=== PATIENT | male | born 1995 | race Caucasian/White ===

== ENCOUNTER 2017-01-12 09:39 | Emergency (ER) | payer SELFPAY ==
[~2017-01-12] VITALS: Ht 182.9 cm; Wt 63.0 kg
[~2017-01-12 09:39] MED LIST: IBUP-1542 PO
[2017-01-12 09:40] VITALS: Ht 182.9 cm; Wt 63.0 kg
[2017-01-12] MEDS ORDERED: SOD CHLORIDE 0.9% 1,000 ML IV STA (09:54)
[2017-01-12 10:31] LABS: BASOPHILS % 0.4 % (0.0-2.0); EOSINOPHILS # 0.2 10^3/ul (0.0-0.5); EOSINOPHILS % 3.2 % (0.0-7.0); HEMATOCRIT 41.9 % (42.0-52.0); HEMOGLOBIN 14.7 g/dl (14.0-18.0); LYMPHOCYTES # 1.8 10^3/ul (0.8-2.9); LYMPHOCYTES % 25.7 % (18.0-55.0); MEAN CORPUSCULAR HEMOGLOBIN 32.5 pg (29.0-33.0); MEAN CORPUSCULAR HGB CONC 35.1 g/dl (32.0-37.0); MEAN CORPUSCULAR VOLUME 92.5 fl (72.0-104.0); MEAN PLATELET VOLUME 10.7 fl (7.4-10.4); MONOCYTE # 0.4 10^3/ul (0.3-0.9); MONOCYTES % 5.9 % (0.0-13.0); NEUTROPHIL # 4.5 10^3/ul (1.6-7.5); NEUTROPHILS % 64.4 % (30.0-74.0); PLATELET COUNT 197 10^3/UL (140-415); RED BLOOD COUNT 4.53 10^6/ul (4.70-6.10); RED CELL DISTRIBUTION WIDTH 12.7 % (11.5-14.5); WHITE BLOOD COUNT 6.9 10^3/ul (4.8-10.8)
[2017-01-12 10:46] LABS: ANION GAP 11 (8-16); BLOOD UREA NITROGEN 13 mg/dl (7-20); CALCIUM 8.8 mg/dl (8.4-10.2); CARBON DIOXIDE 27 mmol/L (21-31); CHLORIDE 106 mmol/L (97-110); CREATININE 0.95 mg/dl (0.61-1.24); GLUCOSE 129 mg/dl (70-220); POTASSIUM 3.8 mmol/L (3.5-5.1); SODIUM 140 mmol/L (135-144)
--- NOTE | 2017-01-12 10:52 | RADRPT ---
PROCEDURE: CT BRAIN WITHOUT CONTRAST. CLINICAL INDICATION: Headache and syncope TECHNIQUE: A CT of the brain was performed on a multidetector high-resolution CT scanner utilizing axial imaging from the skull base through the vertex without IV contrast. Multiplanar reformatted images were made. Images were reviewed on a PACS workstation. The CTDIvol is 42.8 mGy and the DLP is 630 mGycm. One or more of the following dose reduction techniques were used: - Automated exposure control. - Adjustment of the mA and/or kV according to patient size. - Use of iterative reconstruction technique. COMPARISON: None FINDINGS: The posterior fossa structures are unremarkable. The jakob, midbrain, and medulla appear to be with n ormal limits. There is no evidence of acute intracranial hemorrhage, infarct, or extra-axial fluid collection. No gross mass effect or midline shift. Cerebral sulci, cisternal spaces, and ventricles are within norm al limits. The visualized paranasal sinuses are clear. The mastoid air cells are well-aerated. The calvarium is unremarkable. IMPRESSION: 1. No evidence of acute intracranial hemorrhage, infarct, or extra-axial fluid collection. 2. Unremarkable CT brain. RPTAT: AAPP Physician Zachary Date Time Electronically viewed and signed by Physician Zachary on 01/12/2017 10:51 JL/
[2017-01-12 11:03] LABS: TROPONIN-I < 0.012 ng/ml (0.00-0.12)
[2017-01-12] MEDS ORDERED: IBUP-1542 PO (11:37)
[2017-01-12] MEDS ORDERED: ONDA4TAB14 PO (11:37)
--- NOTE | 2017-01-12 12:55 | ERD ---
ER Documentation Chief Complaint Date/Time DATE: 01/12/17 TIME: 12:51 Chief Complaint headache, dizzy since this morning HPI A 21-year-old male with no medical problems who presents with nausea and lightheadedness. He denies passing out but felt like he was going to. He has a headache. It started this morning about 1 hour ago. The patient has had no treatment as of yet. He has no fevers. Upon review of old medical records this is the patient's fourth visit to the ER since 2006. The patient does not currently have a primary doctor. ROS All systems reviewed and are negative except as per history of present illness. Medications Home Meds Active Scripts Ondansetron (Ondansetron Odt) 4 Mg Tab.rapdis, 4 MG PO Q6H Y for NAUSEA AND/OR VOMITING, #10 TAB Prov:MI VILLA MD 01/12/17 Ibuprofen* (Motrin*) 600 Mg Tab, 600 MG PO Q6H Y for PAIN AND OR ELEVATED TEMP, #30 TAB Prov:MI VILLA MD 01/12/17 Discontinued Scripts Ibuprofen* (Motrin*) 600 Mg Tab, 600 MG PO Q6H Y for PAIN AND OR ELEVATED TEMP, #30 TAB Prov:JACQUELYN LUNA PA-C 01/30/16 Allergies Allergies: Coded Allergies: Penicillins (Verified Allergy, Unknown, 11/23/13) PMhx/Soc Medical and Surgical Hx: pt denies Medical Hx, pt denies Surgical Hx History of Surgery: No Anesthesia Reaction: No Hx Neurological Disorder: No Hx Respiratory Disorders: No Hx Cardiac Disorders: No Hx Psychiatric Problems: No Hx Miscellaneous Medical Probl: No Hx Alcohol Use: Yes Hx Substance Use: Yes (MARIJUANA ) Hx Tobacco Use: No Smoking Status: Never smoker FmHx Family History: No diabetes Physical Exam Vitals Vital Signs Date Time Temp Pulse Resp B/P Pulse Ox O2 Delivery O2 Flow Rate FiO2 01/12/17 09:40 98.0 70 19 111/76 99 Physical Exam Const: No acute distress Head: Atraumatic Eyes: Normal Conjunctiva ENT: Normal External Ears, Nose and Mouth. Neck: Full range of motion..~ No meningismus. Resp: Clear to auscultation bilaterally Cardio: Regular rate and rhythm, no murmurs Abd: Soft, non tender, non distended. Normal bowel sounds Skin: No petechiae or rashes Back: No midline or flank tenderness Ext: No cyanosis, or edema Neur: Awake and alert Psych: Normal Mood and Affect Result Diagram: 01/12/17 1000 01/12/17 1000 Results 24 hrs Laboratory Tests Test 01/12/17 10:00 White Blood Count 6.910^3/ul Red Blood Count 4.5310^6/ul Hemoglobin 14.7g/dl Hematocrit 41.9% Mean Corpuscular Volume 92.5fl Mean Corpuscular Hemoglobin 32.5pg Mean Corpuscular Hemoglobin Concent 35.1g/dl Red Cell Distribution Width 12.7% Platelet Count 56575^3/UL Mean Platelet Volume 10.7fl Neutrophils % 64.4% Lymphocytes % 25.7% Monocytes % 5.9% Eosinophils % 3.2% Basophils % 0.4% Nucleated Red Blood Cells % 0.0/100WBC Neutrophils # 4.510^3/ul Lymphocytes # 1.810^3/ul Monocytes # 0.410^3/ul Eosinophils # 0.210^3/ul Basophils # 0.010^3/ul Nucleated Red Blood Cells # 0.010^3/ul Sodium Level 140mmol/L Potassium Level 3.8mmol/L Chloride Level 106mmol/L Carbon Dioxide Level 27mmol/L Anion Gap 11 Blood Urea Nitrogen 13mg/dl Creatinine 0.95mg/dl Glucose Level 129mg/dl Calcium Level 8.8mg/dl Troponin I < 0.012ng/ml Current Medications Medications (Trade) Dose Ordered Sig/Brando Route PRN Reason Start Time Stop Time Status Last Admin Dose Admin Sodium Chloride (NS) 1,000 ml @ 1,000 mls/hr Q1H STAT IV 01/12/17 09:54 01/12/17 10:53 DC 01/12/17 10:16 Procedures/MDM EKG read by me: Rate/Rhythm: Regular rate and rhythm at a normal rate Intervals: Normal Impression: No evidence of ischemia or arrhythmia CT brain shows no intracranial mass or hemorrhage per radiology. Patient is a 21-year-old male who presents with near syncope and headache. Laboratory studies were normal. EKG shows no signs of ischemia or arrhythmia. CT scan of the brain shows no intracranial hemorrhage or mass. The patient was given a liter of fluid and feels better. The patient will be discharged and can follow-up with the primary doctor within 24-48 hours for reevaluation. The patient can return sooner for any worsening symptoms. He was given copies of his laboratory studies and CT scan results prior to discharge. Departure Diagnosis: Primary Impression: Near syncope Additional Impression: Headache Headache type: unspecified Headache chronicity pattern: acute headache Intractability: not intractable Qualified Code: R51 - Acute nonintractable headache, unspecified headache type Condition: Fair Patient Instructions: Self-Care for Headaches Additional Instructions: Call your primary care doctor TOMORROW for an appointment during the next 1-2 days.See the doctor sooner or return here if your condition worsens before your appointment time. MI VILLA MD Jan 12, 2017 12:55
== END 2017-01-12 11:56 | disposition home or self-care (01) ==
LOC: E/R 09:39
DX: R55 Syncope and collapse (principal); R11.0 Nausea
CPT/HCPCS: 36415; 70450; 80048; 84484; 85025; 93005; 99285; J7030